=== PATIENT | male | born 1965 | race Caucasian/White ===

== ENCOUNTER 2019-01-23 09:47 | Day surgery (SDC) | payer OTHER ==
[2019-01-19 11:15] VITALS: BMI 26.2
[2019-01-23] MEDS ORDERED: PROPOFOL 20 ML ONE (11:58)
[2019-01-23 13:01] VITALS: TEMP 97.8
[2019-01-23 13:04] VITALS: BP 114/66; PULSE 76
--- NOTE | 2019-01-26 11:25 | PATH ---
Surgical Pathology Report Patient Name: CHANTEL SWANN [facility]. Rec. #: [id number] /Age/Gender: 1965 (Age: 53) / M Account: [id number] Location: [facility] Taken: 01/23/2019 Received: 01/23/2019 Reported: 01/26/2019 Physicians: Juan Pablo Kumar M.D. Specimen(s) Received A: SECOND PORTION OF DUODENUM B: GASTRIC ANTRUM C: GASTRIC POLYPS (X2 D: ESOPHAGUS Clinical History GERD, screening Postoperative diagnosis: Duodenitis in bulb, gastritis, gastric polyps, diverticulosis Final Diagnosis A. 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 B. GASTRIC ANTRUM, BIOPSY: MILD CHRONIC GASTRITIS WITH FEATURES OF REACTIVE GASTROPATHY. IMMUNOSTAIN IS NEGATIVE FOR H PYLORI ORGANISMS. C. GASTRIC POLYPS (X 2), BIOPSY: GASTRIC FUNDIC GLAND POLYPS (2). IMMUNOSTAIN IS NEGATIVE FOR H. PYLORI ORGANISMS. D. ESOPHAGUS, BIOPSY: ESOPHAGEAL (SQUAMOUS) MUCOSA WITH NO PATHOLOGIC FINDINGS. NO COLUMNAR EPITHELIUM/INTESTINAL METAPLASIA IS IDENTIFIED. Electronically Signed Loni Grant M.D. Gross Description A. Received in formalin, labeled "biopsy second portion of duodenum" are 2 horton, irregular portions of soft tissue averaging 0.4 cm. in greatest dimension. The specimens are submitted in toto in one cassette. B. Received in formalin, labeled "biopsy gastric antrum" are 2 horton, irregular portions of soft tissue measuring 0.3 and 0.6 cm. in greatest dimension. The specimens are submitted in toto in one cassette. C. Received in formalin, labeled "biopsy gastric polyp x2" are 2 horton, irregular portions of soft tissue measuring 0.3 and 0.4 cm. in greatest dimension. The specimens are submitted in toto in one cassette. D. Received in formalin, labeled "biopsy esophagus" is a horton, irregular portion of soft tissue measuring 0.5 cm. in greatest dimension. The specimen is submitted in toto in one cassette. 01/24/2019 saudi01/24/2019
== END 2019-01-23 13:05 | disposition home or self-care (01) ==
LOC: FASU-ENDO 09:47
PROVIDERS: ATTEND Internal Medicine Gastroenterology
PROC: 0DB98ZX Excision of Duodenum, Via Natural or Artificial Opening Endoscopic, Diagnostic (ICD-10-PCS; 2019-01-23)
PROC: 0DB68ZX Excision of Stomach, Via Natural or Artificial Opening Endoscopic, Diagnostic (ICD-10-PCS; 2019-01-23)
PROC: 0DB58ZX Excision of Esophagus, Via Natural or Artificial Opening Endoscopic, Diagnostic (ICD-10-PCS; 2019-01-23)
PROC: 0DJD8ZZ Inspection of Lower Intestinal Tract, Via Natural or Artificial Opening Endoscopic (ICD-10-PCS; principal; 2019-01-23 11:43)
DX: Z12.11 Encounter for screening for malignant neoplasm of colon (principal); K57.30 Diverticulosis of large intestine without perforation or abscess without bleeding; K29.50 Unspecified chronic gastritis without bleeding; K31.7 Polyp of stomach and duodenum; K29.80 Duodenitis without bleeding; K31.9 Disease of stomach and duodenum, unspecified; K31.89 Other diseases of stomach and duodenum